=== PATIENT | female | born 1995 | race African-American/Black ===

== ENCOUNTER 2018-12-29 15:10 | Emergency (ER) | payer SELFPAY ==
[2018-12-29] MEDS ORDERED: DEXAMETHASONE SOD PHOS INJ 10 MG/1 ML VIAL IM ONE (16:05)
--- NOTE | 2018-12-29 16:07 | ER Document Report ---
HPI - HPI Time Seen by Provider: 12/29/18 15:53 Pain Level: 3 Notes: Sore throat and dry cough with some body aching that began over the past 1 to 2 days. No known exposure to illness. She is not aware of anything that worsens or improves her symptoms. Patient states that she is still eating and drinking without difficulty. She is urinating normally. Denies drug allergies. No other concerns or complaints. Patient will be needing a work note. Denies any headache, fever, neck pain, hoarseness, drooling, URI, chest pain, palpitations, syncope, shortness of breath, wheeze, dyspnea, abdominal pain, nausea/vomiting/diarrhea, urinary retention, dysuria, hematuria, rash. - ROS Systems Reviewed and Negative: Yes All other systems reviewed and negative - EENT EENT: REPORTS: Sore Throat - RESPIRATORY Respiratory: REPORTS: Coughing - REPRODUCTIVE Reproductive: DENIES: : Past Medical History - Social History Smoking Status: Never Smoker Family History: Reviewed & Not Pertinent Patient has suicidal ideation: No Patient has homicidal ideation: No Renal/ Medical History: Denies: Hx Peritoneal Dialysis Vertical Provider Document - CONSTITUTIONAL Agree With Documented VS: Yes Notes: PHYSICAL EXAMINATION: GENERAL: Well-appearing, well-nourished and in no acute distress. A&Ox4. Answers questions appropriately. Moves comfortably w/o notable distress HEAD: Atraumatic, normocephalic. EYES: Pupils equal round and reactive to light, extraocular movements intact, sclera anicteric, conjunctiva are normal. ENT: EAC clear b/l. TM's intact b/l without erythema, fluid, or perforation. Nares patent and with clear discharge. oropharynx mild erythema without exudates. 2+ tonsilar hypertrophy with mild erythema no exudate. No palatine shift. Uvula midline. No tongue protrusion. No drooling, hoarseness, or airway compromise. Moist mucous membranes. No sinus tenderness. NECK: Normal range of motion, supple without lymphadenopathy. No rigidity/meningismus. LUNGS: Breath sounds clear to auscultation bilaterally and equal. No wheezes rales or rhonchi. No retractions HEART: Regular rate and rhythm without murmurs, rubs, gallops. NEUROLOGICAL: Normal speech, normal gait. PSYCH: Normal mood, normal affect. SKIN: Warm, Dry, normal turgor, no rashes or lesions noted. - INFECTION CONTROL TRAVEL OUTSIDE OF THE [place] IN LAST 30 DAYS: No Course - Re-evaluation Re-evalutation: 12/29/18 Patient is an afebrile, well-hydrated, 23-year-old female who presents with acute pharyngitis/cough, suspect viral. Vitals are acceptable without significant tachycardia, tachypnea, or hypoxia. PE is otherwise unremarkable. Patient is nontoxic-appearing and is tolerating p.o. without difficulty. Rapid strep negative with throat culture pending. No further work-up warranted. Patient was given Decadron IM. Low suspicion for any meningitis, sepsis, peritonsillar/pharyngeal abscess, respiratory compromise, Roderick's, or other emergent systemic condition at this time. Patient is aware this condition can change from initial presentation and she needs to monitor symptoms closely. Conservative measures otherwise for symptoms. Recheck with your PCM in 3-5 days. Return to the ED with any worsening/concerning symptoms otherwise as reviewed in discharge. Patient is in agreement. - Vital Signs Vital signs: Temp Pulse Resp BP Pulse Ox 98.6 F 83 15 130/77 H 99 12/29/18 15:23 12/29/18 15:23 12/29/18 15:23 12/29/18 15:23 12/29/18 15:23 Discharge - Discharge Clinical Impression: Viral syndrome, Sore throat Condition: Stable Disposition: HOME, SELF-CARE Instructions: Sore Throat ([facility]), Viral Syndrome ([facility]) Additional Instructions: Maintain adequate fluid intake Take meds as directed Salt water gargles, throat sprays, mouthwash rinse, peroxide gargles tylenol/ibuprofen as needed over the counter cold medication as needed for symptoms F/u: with your PCM in 2-3 days for a recheck Consider consult with ENT for ongoing/worsening symptoms Return to the ED with any fever, worsening pain, chest pain, neck pain/stiffness, shortness of breath, cough, drooling, trouble swal lowing/breathing, abdominal pain, n/v/d, rash, or worsening/concerning symptoms otherwise. Forms: Elevated Blood Pressure, Return to Work Referrals: LURDES BEASLEY DO [ASSOCIATE] - Follow up as needed
[2018-12-29 16:32] VITALS: BP 112/69
== END 2018-12-29 16:31 | disposition home or self-care (01) ==
LOC: EDBD → ER 15:10
DX: B34.9 Viral infection, unspecified (principal); J02.9 Acute pharyngitis, unspecified; R05 Cough; R52 Pain, unspecified; J35.1 Hypertrophy of tonsils; R09.89 Other specified symptoms and signs involving the circulatory and respiratory systems
CPT/HCPCS: 99283; 96372; 87070; 87880; J1100

== ENCOUNTER 2019-04-04 12:14 | Emergency (ER) | payer SELFPAY ==
[2019-04-04] MEDS ORDERED: ACETAMINOPHEN 325 MG TABLET PO ONE (14:08)
--- NOTE | 2019-04-04 14:10 | ER Document Report ---
ED Medical Screen (RME) - General Chief Complaint: Fall Stated Complaint: FALL/BACK PAIN Time Seen by Provider: 04/04/19 14:04 Mode of Arrival: Ambulatory Information source: Patient Notes: 23-year-old female presented to ED for complaint of chronic back pain that is worse today because she fell out of the shower last night. She she slipped due to her foot being wet when she got in the shower. Patient denies any signs or symptoms of cauda equina. She states she is on her menstrual cycle at this time. TRAVEL OUTSIDE OF THE [place] IN LAST 30 DAYS: No - HPI Onset: Other - chronic Onset/Duration: Better Quality of pain: Achy Severity: Moderate Pain Level: 3 Associated Symptoms: Other - back pian Exacerbated by: Movement, Walking Relieved by: Denies Similar symptoms previously: Yes Recently seen / treated by doctor: No - Related Data Smoking: Cigarettes - ppd Frequency of alcohol use: None Drug Abuse: None Allergies/Adverse Reactions: No Known Allergies Allergy (Verified 04/04/19 12:15) Past Medical History - General Information source: Patient - Social History Cigarette use (# per day): Yes - ppd Frequency of alcohol use: None Drug Abuse: None Lives with: Alone Family history: Reviewed & Not Pertinent - Past Medical History Cardiac Medical History: Reports: None Pulmonary Medical History: Reports: None EENT Medical History: Reports: None Neurological Medical History: Reports: None Endocrine Medical History: Reports: None Renal/ Medical History: Reports: None Malignancy Medical History: Reports: None GI Medical History: Reports: None Musculoskeltal Medical History: Reports Hx Musculoskeletal Deformity, Reports Hx Musculoskeletal Trauma Skin Medical History: Reports None Psychiatric Medical History: Reports: None Traumatic Medical History: Reports: None Infectious Medical History: Reports: None Past Surgical History: Reports: Hx Cholecystectomy - Immunizations Immunizations up to date: No Hx Diphtheria, Pertussis, Tetanus Vaccination: No Review of Systems - Review of Systems Constitutional: No symptoms reported EENT: No symptoms reported Cardiovascular: No symptoms reported Respiratory: No symptoms reported Gastrointestinal: No symptoms reported Genitourinary: No symptoms reported Female Genitourinary: No symptoms reported Musculoskeletal: Back pain, Muscle pain, Muscle stiffness Skin: No symptoms reported Hematologic/Lymphatic: No symptoms reported Neurological/Psychological: No symptoms reported -: Yes All other systems reviewed and negative Physical Exam - Vital signs Vitals: Temp Pulse Resp BP Pulse Ox 97.3 F 79 20 126/67 H 97 04/04/19 12:25 04/04/19 12:25 04/04/19 12:25 04/04/19 12:25 04/04/19 12:25 Interpretation: Normal - General General appearance: Appears well, Alert - HEENT Head: Normocephalic, Atraumatic Eyes: Normal Pupils: PERRL - Respiratory Respiratory status: No respiratory distress Chest status: Nontender Breath sounds: Normal Chest palpation: Normal - Cardiovascular Rhythm: Regular Heart sounds: Normal auscultation Murmur: No - Abdominal Inspection: Normal Distension: No distension Bowel sounds: Normal Tenderness: Nontender Organomegaly: No organomegaly - Back Back: Normal, Tender, Vertebra tenderness - Extremities General upper extremity: Normal inspection, Nontender, Normal color, Normal ROM, Normal temperature General lower extremity: Normal inspection, Nontender, Normal color, Normal ROM, Normal temperature, Normal weight bearing. No: Marc's sign - Neurological Neuro grossly intact: Yes Cognition: Normal Orientation: AAOx4 Nancie Coma Scale Eye Opening: Spontaneous [place] Coma Scale Verbal: Oriented Nancie Coma Scale Motor: Obeys Commands Nancie Coma Scale Total: 15 Speech: Normal Motor strength normal: LUE, RUE, LLE, RLE Sensory: Normal - Psychological Associated symptoms: Normal affect, Normal mood - Skin Skin Temperature: Warm Skin Moisture: Dry Skin Color: Normal Course - Re-evaluation Re-evalutation: 04/04/19 22:11 After performing a Medical Screening Examination, I estimate there is LOW risk for EXPANDING OR RUPTURED ABDOMINAL AORTIC ANEURYSM, CAUDA EQUINA SYNDROME, EPIDURAL MASS LESION, or HERNIATED DISK CAUSING SEVERE SPINAL STENOSIS, thus I consider the discharge disposition reasonable. I have reevaluated this patient multiple times and no significant life threatening changes are noted. The patient and I have discussed the diagnosis and risks, and we agree with discharging home and close follow-up. We also discussed returning to the Emergen cy Department immediately if new or worsening symptoms occur with the understanding that symptoms and presentations can change. We have discussed the symptoms which are most concerning (e.g., saddle anesthesia, urinary or bowel incontinence or retention, changing or worsening pain) that necessitate immediate return. Patient also had a UTI which was treated with antibiotics and patient was discharged home. - Vital Signs Vital signs: Temp Pulse Resp BP Pulse Ox 98.1 F 82 16 115/58 L 98 04/04/19 16:51 04/04/19 16:51 04/04/19 16:51 04/04/19 16:51 04/04/19 16:51 - Laboratory Laboratory results interpreted by me: 04/04/19 14:17 Urine Blood LARGE H Urine Urobilinogen 2.0 H Ur Leukocyte Esterase SMALL H - Diagnostic Test Radiology reviewed: Image reviewed, Reports reviewed Doctor's Discharge - Discharge Clinical Impression: Chronic back pain Qualifiers: Back pain location: low back pain Back pain laterality: unspecified Sciatica presence: without sciatica Qualified Code(s): M54.5 - Low back pain Fall Qualifiers: Encounter type: initial encounter Qualified Code(s): W19.XXXA - Unspecified fall, initial encounter UTI (urinary tract infection) Qualifiers: Urinary tract infection type: acute cystitis Hematuria presence: with hematuria Qualified Code(s): N30.01 - Acute cystitis with hematuria Condition: Stable Disposition: HOME, SELF-CARE Instructions: Family Physicians / Practices Additional Instructions: Chronic Back Pain Chronic back pain (pain persisting longer than three months) is a common problem. A medical evaluation can look for herniated disc, arthritis, osteoporosis, tumors, and infections. But at least half the time, there's no obvious treatable cause. Anxiety and depression tend to worsen back pain. Ibuprofen or other anti-inflammatory medicine can help. A heating pad, used for 15-20 minutes at a time, can ease pain. For this type of back pain, narcotic medicines should be avoided. Muscle relaxers are rarely helpful unless you're having spasms. Activity is important. Find an aerobic exercise program that your back can tolerate. Too much rest makes back pain worse. Specific back exercises are usually prescribed to strengthen the back and abdominal muscles. Often, a physical therapist can help. Avoid heavy lifting, working while bent over, or standing with both knees straight. Most back pain patients do better with a firm mattress. If new symptoms of a "herniated disc" (radiation of pain, numbness, or tingling down the back of the leg or weakness in the leg) occur, you should be re-examined. LOW BACK PAIN: Three out of every four people will have an episode of disabling back pain during their lifetime. Most commonly the pain is due to straining of the muscles and ligaments in the low back. Usual treatment includes: (1) Rest on a firm surface. Avoid lying on your stomach. (2) Ice pack the painful area. After a few days, gentle heat may be used intermittently to relax the area, or ice packs can be continued. (3) Medication may be needed -- muscle relaxers and antiinflammatory medicines are commonly used. (4) As the back improves, exercises are prescribed to strengthen the back and abdominal muscles. Your doctor will advise you on the proper care for your back at each stage in your recovery. You may be better in a few days -- or healing may take several weeks. If new symptoms of a "herniated disc" (radiation of pain, numbness, or tingling down the back of the leg or weakness in the leg) occur, you should be re-examined. Further testing may be necessary. URINARY TRACT INFECTION: Your evaluation indicates that you have a urinary tract infection. This is due to germs growing in the bladder. This is a common problem. This infection usually responds quickly to antibiotics. Your antibiotic should be taken exactly as prescribed. Drink plenty of fluids -- three to four quarts a day. Occasionally, a bladder anesthetic will be prescribed to help stop the feeling of urgency until the antibiotic has a chance to clear the infection. This may cause your urine to be dark orange. Certain urine infections require a culture. If the doctor obtained a culture, the results will be back in two days. You should call to see if a change in treatment is needed. A repeat urinalysis after you finish treatment is often recommended. The physician will let you know if further testing is required. Call the doctor if you develop fever, chills, flank pain, inability to urinate, or blood in the urine. NITROFURANTOIN (MACRODANTIN, MACROBID): You have received a prescription for nitrofurantoin (Macrodantin). This antibiotic is used for urinary tract infections. Women who are or nursing should notify the physician before taking this medicine. If you have ever had a problem caused by this medication in the past, be sure the physician is aware of it. Common side effects of this medicine include nausea, vomiting, or decreased appetite. Notify your physician if these side effects become severe. Immediately stop this medicine and call the physician if you develop cough, shortness of breath, chest pain, weakness, jaundice (yellow color of the skin and whites of the eyes), or a skin rash. ICE PACKS: Apply ice packs frequently against the painful area. Many different schedules are recommended, such as "20 minutes on, 20 minutes off" or "one hour ice, two hours rest." If you need to work, you may need to go longer between ice treatments. You should plan to have the area ice packed AT LEAST one fourth of the time. The ice should be applied over the wrap, tape, or splint, or over a layer of cloth -- not directly against the skin. Some ice bags have a built-in cloth and can be put directly on the skin. WARM PACKS: After approximately two days, apply gentle heat (such as a heating pad or hot water bottle) for about 20 to 30 minutes about every two hours -- at least four times daily. Warmth and elevation will help you make a more rapid recovery, and will ease the pain considerably. Do not use HOT heat, and never apply heat for longer than 30 minutes. The continuous heat can invisibly damage skin and muscles -- even when no burn is seen on the surface. Damaged muscles can make you MORE sore. Stretching Exercises for the Back The physician has recommended that you begin stretching exercises for your back. These are often used even while the back is painful. However, you should notify the physician if the activities seem to increase your pain. PELVIC TILT: Lie flat on your back with knees bent. Tighten your stomach and buttock muscles so it flattens your lower back against the floor. Hold 10 seconds. Repeat 10 times, twice daily. KNEE RAISE: Lying on the back with knees bent, raise one knee to your chest, then the other. Hold both knees against the chest 10 seconds, then lower one knee at a time. Repeat 10 times, twice daily. PARTIAL TRUNK RAISE: Lie face down, arms at your sides. Keeping your waist on the floor, use your arms raise your chest up. Support yourself on your elbows for 30 seconds. Repeat twice daily, increasing the time to two minutes as you recover. Toradol Injection You have been given an injection of ketorolac tromethamine (Toradol). This is an excellent, safe drug for pain control. It also has potent antiinflammatory action. You should have significant pain relief within about one hour. Toradol is not addicting and is non-sedating. It does not interfere with driving or work. Call or return if you develop itching, hives, shortness of breath, or rash. FOLLOW-UP CARE: If you have been referred to a physician for follow-up care, call the physicians office for an appointment as you were instructed or within the next two days. If you experience worsening or a significant change in your symptoms, notify the physician immediately or return to the Emergency Department at any time for re-evaluation. Prescriptions: Nitrofurantoin/Nitrofuran Mac [Macrobid 100 mg Capsule] 1 tab PO BID #14 capsule Forms: Return to Work
[2019-04-04 14:53] LABS: APPEARANCE,URINE CLEAR; BILIRUBIN,URINE NEGATIVE (NEGATIVE); COLOR,URINE YELLOW; GLUCOSE, URINE NEGATIVE (NEGATIVE); KETONES,URINE NEGATIVE (NEGATIVE); LEUKOCYTE ESTERASE,URINE SMALL (NEGATIVE); NITRITE,URINE NEGATIVE (NEGATIVE); PROTEIN,URINE NEGATIVE (NEGATIVE); URINE SPECIFIC GRAVITY 1.015
--- NOTE | 2019-04-04 15:42 | RADIOLOGY REPORT (SQ) ---
EXAM DESCRIPTION: L SPINE WHOLE COMPLETED DATE/TIME: 04/04/2019 3:17 pm REASON FOR STUDY: Increase in chronic low back pain COMPARISON: None. NUMBER OF VIEWS: Five views including obliques. TECHNIQUE: AP, lateral, oblique, and sacral radiographic images acquired of the lumbar spine. LIMITATIONS: None. FINDINGS: MINERALIZATION: Normal. SEGMENTATION: Normal. No transitional anatomy. ALIGNMENT: Normal. VERTEBRAE: Maintained height. No fracture or worrisome bone lesion. DISCS: Preserved height. No significant osteophytes or end plate irregularity. POSTERIOR ELEMENTS: Pedicles and facets are intact. No pars defect or posterior arch defects. HARDWARE: None in the spine. PARASPINAL SOFT TISSUES: Normal. PELVIS: Intact as visualized. No fractures or worrisome bone lesions. SI joints intact. OTHER: No other significant finding. IMPRESSION: NORMAL 5 VIEW LUMBAR SPINE. TECHNICAL DOCUMENTATION: JOB ID: [id number] [employer]- All Rights Reserved Reading location - IP/workstation name: [email or web address]
[2019-04-04 16:53] VITALS: BP 115/58
[2019-04-04] MEDS ORDERED: NITROFURANTOIN MONOHYD/M-CRYST 100 MG CAPSULE PO ONE (16:55)
[2019-04-04] MEDS ORDERED: KETOROLAC TROMETHAMINE 60 MG/2 ML SDV IM ONE (16:55)
== END 2019-04-04 17:07 | disposition home or self-care (01) ==
LOC: ER 12:14
DX: N30.01 Acute cystitis with hematuria (principal); M54.5 Low back pain; W18.2XXA Fall in (into) shower or empty bathtub, initial encounter; Y93.E1 Activity, personal bathing and showering; F17.210 Nicotine dependence, cigarettes, uncomplicated
CPT/HCPCS: 87086; 81025; 81001; 72110; J1885; J8499; 96374; 99283

== ENCOUNTER 2019-06-17 16:08 | Emergency (ER) | payer SELFPAY ==
[2019-06-17 16:12] VITALS: BP 110/59
--- NOTE | 2019-06-17 16:21 | ER Document Report ---
ED Medical Screen (RME) - General Chief Complaint: Abscess Stated Complaint: ABSCESS Time Seen by Provider: 06/17/19 16:15 Mode of Arrival: Ambulatory Information source: POA - [employer] Notes: 23-year-old female presented to ED for 2 abscesses to the right axilla and one abscess to the left axilla. She states they have been present for about 3 weeks. There were 2 on the right side or draining a small amount the abscess I did open with an 18-gauge needle. The one on the left side is not ready for opening at this time. I have started her on Bactrim and Keflex. A wound culture was sent of the abscess on the right. TRAVEL OUTSIDE OF THE [place] IN LAST 30 DAYS: No - HPI Onset: Other - 3 weeks Onset/Duration: Gradual, Better Quality of pain: Achy, Sharp Severity: Moderate Pain Level: 3 Associated Symptoms: Other - Abscesses bilateral axilla Exacerbated by: Movement Relieved by: Denies Similar symptoms previously: Yes Recently seen / treated by doctor: No - Related Data Smoking: Cigar Frequency of alcohol use: Occasional - 1 black in miles a day Drug Abuse: Marijuana Allergies/Adverse Reactions: No Known Allergies Allergy (Verified 04/04/19 12:15) Past Medical History - General Information source: Patient - Social History Cigarette use (# per day): Yes - 1 black and mild Frequency of alcohol use: Occasional Drug Abuse: Marijuana Occupation: Call center Lives with: Family Family history: Reviewed & Not Pertinent - Past Medical History Cardiac Medical History: Reports: None Pulmonary Medical History: Reports: None EENT Medical History: Reports: None Neurological Medical History: Reports: None Endocrine Medical History: Reports: None Renal/ Medical History: Reports: None Malignancy Medical History: Reports: None GI Medical History: Reports: None Musculoskeltal Medical History: Reports Hx Musculoskeletal Deformity, Reports Hx Musculoskeletal Trauma Skin Medical History: Reports Other - Bilateral abscesses Psychiatric Medical History: Reports: None Traumatic Medical History: Reports: None Infectious Medical History: Reports: None Past Surgical History: Reports: Hx Cholecystectomy - Immunizations Immunizations up to date: No Hx Diphtheria, Pertussis, Tetanus Vaccination: No Review of Systems - Review of Systems Constitutional: No symptoms reported EENT: No symptoms reported Cardiovascular: No symptoms reported Respiratory: No symptoms reported Gastrointestinal: No symptoms reported Genitourinary: No symptoms reported Female Genitourinary: No symptoms reported Musculoskeletal: No symptoms reported Skin: Lesions - 2 abscesses to right axilla and 1 to left Hematologic/Lymphatic: No symptoms reported Neurological/Psychological: No symptoms reported -: Yes All other systems reviewed and negative Physical Exam - Vital signs Vitals: Temp Pulse Resp BP Pulse Ox 97.9 F 75 18 110/59 L 100 06/17/19 16:11 06/17/19 16:11 06/17/19 16:11 06/17/19 16:11 06/17/19 16:11 Interpretation: Normal - General General appearance: Appears well, Alert - HEENT Head: Normocephalic, Atraumatic Eyes: Normal Pupils: PERRL - Respiratory Respiratory status: No respiratory distress Chest status: Nontender Breath sounds: Normal Chest palpation: Normal - Cardiovascular Rhythm: Regular Heart sounds: Normal auscultation Murmur: No - Abdominal Inspection: Normal Distension: No distension Bowel sounds: Normal Tenderness: Nontender Organomegaly: No organomegaly - Back Back: Normal, Nontender - Extremities General upper extremity: Normal inspection, Nontender, Normal color, Normal ROM, Normal temperature General lower extremity: Normal inspection, Nontender, Normal color, Normal ROM, Normal temperature, Normal weight bearing. No: Marc's sign - Neurological Neuro grossly intact: Yes Cognition: Normal Orientation: AAOx4 Nancie Coma Scale Eye Opening: Spontaneous [place] Coma Scale Verbal: Oriented Nancie Coma Scale Motor: Obeys Commands Nancie Coma Scale Total: 15 Speech: Normal Motor strength normal: LUE, RUE, LLE, RLE Sensory: Normal - Psychological Associated symptoms: Normal affect, Normal mood - Skin Skin Temperature: Warm Skin Moisture: Dry Skin Color: Normal Skin irregularity: Abscess Location of irregularity: Other - 2 right axilla and 1 left axilla; 2 on right draining one on left not. Character of irregularity: Erythematous Irregularity with: Swelling, Tenderness, Inflammation, Weeping Course - Vital Signs Vital signs: Temp Pulse Resp BP Pulse Ox 97.9 F 75 18 110/59 L 100 06/17/19 16:11 06/17/19 16:11 06/17/19 16:11 06/17/19 16:11 06/17/19 16:11 Procedures - Incision and Drainage Right Axilla Time completed: 16:41 Type: Simple Anesthetic type: Other mL's of anesthetic: 0 Blade size: Other - 18 gauge I&D procedure: Betadine prep applied Incision Method: Incision made with needle Amount/type of drainage: moderateamount purulent drainage Doctor's Discharge - Discharge Clinical Impression: Cutaneous abscess of right axilla, Abscess of left axilla Condition: Stable Disposition: HOME, SELF-CARE Instructions: Family Physicians / Practices Additional Instructions: ABSCESS: You have an abscess (boil). This a pus-forming infection, usually due to staph. Some boils may be left to drain on their own, but most require lancing. From the time the tender lump first appears, it may be three or four days before the abscess is ready to raymond. Local heat and rest help at this stage of treatment. An antibiotic may prevent spread of the infection. Once the abscess is opened, packing may be placed into it. This is done so pus is not sealed inside by premature closure of the cavity. The packing will be removed at your follow-up visit or you may be advised to remove it yourself at home. Sometimes this packing must be replaced a few times during healing. The wound will heal with surprisingly little scar. Depending on the size and location of an abscess, healing can take one to four weeks. You may shower and wash the area around the incision site two or three times a day. Antibiotics may be prescribed, but are usually not necessary after an abscess has been drained. If you develop fever, chills, worsening pain, or increasing swelling in the area, call the doctor or return immediately. POST INCISION AND DRAINAGE: You have had an incision made to allow drainage of an abscess. The incision must remain open so that pus and debris can drain from the wound. If the abscess cavity is large, packing is placed. This keeps the tissues from collapsing and trapping pus inside, while the body shrinks the cavity. The packing may need to be replaced every day or two. The physician will instruct you on the packing. Keep a bulky dressing over the area. Replace it if it becomes saturated with blood or pus. Do not disturb the packing (if present). You may shower and cleanse the area with gentle soap and warm water two or three times a day. Local warmth may be soothing, and may promote faster healing. Return if you develop high fever or chills, or if you note spreading redness, increasing swelling, or increasing tenderness. CEPHALEXIN: The antibiotic you've been prescribed is a member of the cephalosporin class. This type of antibiotic covers a wide variety of infections, including those of the skin, lungs, and urinary tract. It's useful for staph infections. This antibiotic is slightly similar to the penicillin family. In rare cases, a person who is allergic to penicillin will also be allergic to this medication. If you have had a severe allergic reaction to penicillin, and have not taken this antibiotic since that time, notify your doctor. Antibiotics which cover many germs ("broad spectrum" antibiotics) are more likely to cause diarrhea or "yeast" infections. Women prone to vaginal yeast problems may suffer an attack after taking this antibiotic. In infants, oral thrush (white spots "stuck" on the cheek) or yeast diaper rash may result. See your doctor if these problems occur. Call at once if you develop itching, hives, shortness of breath, or lightheadedness. TRIMETHOPRIM-SULFA: You have been given a prescription for trimethoprim-sulfa (TMS, Septra, Bactrim). This is a combination antibiotic of the sulfa class, often used for urinary tract infections, middle ear infections, bronchitis, shigella intestinal infection, and Pneumocystis pneumonia. TMS is usually well-tolerated. Occasional side effects include nausea and decreased appetite. Septra is not recommended for infants less than two months of age. Do not take this medication if you have experienced severe side effects or allergy to sulfa medicine. You should stop this medicine at once and contact your physician if you develop any rash, joint pain, shortness of breath, bruising, or jaundice (yellow color in the skin), or if you develop any other new or unusual symptoms. FOLLOW-UP CARE: Most simple abscesses will not require a follow up visit. If you had packing placed in the abscess, remove it as instructed by the physician. If you have been referred to a physician for follow-up care, call the physicians office for an appointment as you were instructed or within the next two days. If you experience worsening or a significant change in your symptoms, return to the Emergency Department at any time for re-evaluation. Prescriptions: Sulfamethoxazole/Trimethoprim [Bactrim Ds Tablet] 1 each PO BID #20 tablet Cephalexin Monohydrate [Keflex 500 mg Capsule] 500 mg PO Q6H 5 Days capsule Forms: Smoking Cessation Education, Return to Work
[2019-06-17] MEDS ORDERED: SULFAMETHOXAZOLE/TRIMETHOPRIM 800-160 MG TABLET PO ONE (16:24)
[2019-06-17] MEDS ORDERED: CEPHALEXIN 500 MG CAPSULE PO ONE (16:24)
== END 2019-06-17 16:32 | disposition home or self-care (01) ==
LOC: ER 16:08
DX: L02.411 Cutaneous abscess of right axilla (principal); L02.412 Cutaneous abscess of left axilla; F17.290 Nicotine dependence, other tobacco product, uncomplicated; F17.210 Nicotine dependence, cigarettes, uncomplicated
CPT/HCPCS: 87070; 87075; 87077; 87205; 99283

== ENCOUNTER 2020-01-27 08:01 | Emergency (ER) | payer SELFPAY ==
[2020-01-27] MEDS ORDERED: LIDOCAINE 1%/EPINEPHRINE INJ 20 ML VIAL INJ ONE (09:23)
[2020-01-27] MEDS ORDERED: HYDROCODONE/ACETAMINOPHEN 5-325 MG TABLET PO ONE (09:23)
--- NOTE | 2020-01-27 09:33 | ER Document Report ---
ED General - General Chief Complaint: Abscess Stated Complaint: ABSCESS Time Seen by Provider: 01/27/20 09:14 Notes: 24-year-old female with no pertinent past medical history reported states that she has had a pain along her buttocks for approximately 3 weeks that is increased in the last 2 to 3 days states it is painful to sit down, painful to walk. She has not noticed any drainage. States she has never had any abscesses in this location before. Last menstrual period was 10 days ago. No numbness or tingling. Denies any fever, chills, shortness of breath or additional symptoms. She drinks occasional alcohol, current smoker and denies any IV drug use. States she smokes marijuana occasionally, last use was yesterday. TRAVEL OUTSIDE OF THE [place] IN LAST 30 DAYS: No - Related Data Allergies/Adverse Reactions: No Known Allergies Allergy (Verified 01/28/20 10:47) Past Medical History - Social History Smoking Status: Current Every Day Smoker Chew tobacco use (# tins/day): No Frequency of alcohol use: Social Drug Abuse: Marijuana Family History: Reviewed & Not Pertinent Patient has homicidal ideation: No - Past Medical History Cardiac Medical History: Reports: None Pulmonary Medical History: Reports: None EENT Medical History: Reports: None Neurological Medical History: Reports: None Endocrine Medical History: Reports: None Renal/ Medical History: Reports: None. Denies: Hx Peritoneal Dialysis Musculoskeletal Medical History: Reports Hx Musculoskeletal Deformity, Reports Hx Musculoskeletal Trauma Past Surgical History: Reports: Hx Abdominal Surgery, Hx Cholecystectomy - Immunizations Immunizations up to date: No Hx Diphtheria, Pertussis, Tetanus Vaccination: No Review of Systems - Review of Systems Constitutional: No symptoms reported EENT: No symptoms reported Cardiovascular: No symptoms reported Respiratory: No symptoms reported Gastrointestinal: No symptoms reported Genitourinary: No symptoms reported Female Genitourinary: No symptoms reported Skin: See HPI Physical Exam - Vital signs Vitals: Temp Pulse Resp BP Pulse Ox 99.7 F 104 H 20 129/70 H 99 01/27/20 08:04 01/27/20 08:04 01/27/20 08:04 01/27/20 08:04 01/27/20 08:04 Course - Re-evaluation Re-evalutation: 01/27/20 23:12 Abscess was drained. Patient reports relief in her symptoms. Patient is eager to leave. I am pending results of the CBC. I revaluated patient. Patient continues to be nontoxic, non ill appearing. She continues to be eager to leave. I discussed with her that I am still pending the results of her CBC but I will call her if the results are abnormal and if she needs additional treatment. I will prescribe her antibiotics. She will also need to follow up with her primary care provider for a wound check tomorrow. I also recommend she follow up with a general surgeon for additional management of her pilodinal cyst. Return precautions discussed to include worsening symptoms or the development of new symptoms. She may take tylenol and ibuprofen for pain. Patient acknowledges and verbalizes understanding of instructions and plan. All questions answered. - Vital Signs Vital signs: Temp Pulse Resp BP Pulse Ox 98.4 F 90 15 113/67 97 01/27/20 12:27 01/27/20 12:27 01/27/20 12:27 01/27/20 12:27 01/27/20 12:27 - Laboratory Result Diagrams: 01/27/20 12:00 Laboratory results interpreted by me: 01/27/20 12:00 WBC 15.7 H Hgb 11.9 L RDW 14.3 H Lymph % (Auto) 12.1 L Absolute Neuts (auto) 12.4 H Seg Neutrophils % 79.3 H Discharge - Discharge Clinical Impression: Pilonidal cyst with abscess Condition: Stable Disposition: HOME, SELF-CARE Instructions: Abscess ([facility]), Oral Narcotic Medication ([facility]) Additional Instructions: You have been treated for an infected pilonidal cyst. I recommend that you follow-up with your primary care tomorrow for wound check and dressing change. Also recommend you follow-up with a general surgeon for further evaluation and treatment. Please take medication as prescribed. You have been prescribed antibiotic and pain med. Still pending the results of your CBC. You will be notified if there is any concerning findings on this. Please do not drive while taking this pain medication. Please return to the emergency department if you have worsening symptoms or the development of new symptoms. Prescriptions: Clindamycin HCl 150 mg PO TID #21 capsule Clindamycin HCl 450 mg PO TID #21 capsule Hydrocodone/Acetaminophen [Comfort 5-325 mg Tabs (6 Tab/ER Disp)] 1 tab PO Q6H 2 Days #6 dspk
[2020-01-27 12:29] LABS: ABSOLUTE EOSINOPHILS # (AUTO) 0.1 10^3/uL (0.0-0.6); ABSOLUTE LYMPHOCYTES (AUTO) 1.9 10^3/uL (0.5-4.7); ABSOLUTE MONOCYTES (AUTO) 1.2 10^3/uL (0.1-1.4); ABSOLUTE NEUT (AUTO) 12.4 10^3/uL (1.7-8.2); BASOPHILS % (AUTO) 0.3 % (0-2); EOSINOPHILS % (AUTO) 0.7 % (0-6); HEMATOCRIT 36.8 % (36.0-47.0); HEMOGLOBIN 11.9 g/dL (12.0-15.5); LYMPHOCYTES % (AUTO) 12.1 % (13-45); MEAN CORPUSCULAR HEMOGLOBIN 27.4 pg (27.0-33.4); MEAN CORPUSCULAR HGB CONC 32.3 g/dL (32.0-36.0); MEAN CORPUSCULAR VOLUME 85 fl (80-97); MONOCYTES % (AUTO) 7.6 % (3-13); PLATELET COUNT 362 10^3/uL (150-450); RED BLOOD COUNT 4.35 10^6/uL (3.72-5.28); RED CELL DISTRIBUTION WIDTH 14.3 % (11.5-14.0); SEGMENTED NEUTROPHILS % (AUTO) 79.3 % (42-78); TOTAL CELLS COUNTED % (AUTO) 100 %; WHITE BLOOD COUNT 15.7 10^3/uL (4.0-10.5)
[2020-01-27 12:33] VITALS: BP 113/67
== END 2020-01-27 12:35 | disposition home or self-care (01) ==
LOC: ER 08:01
DX: L05.01 Pilonidal cyst with abscess (principal); F17.200 Nicotine dependence, unspecified, uncomplicated
CPT/HCPCS: 99283; 36415; 87070; 87205; 85025; J3490; 87075; 87077

== ENCOUNTER 2020-01-27 14:47 | Emergency (ER) | payer SELFPAY ==
[2020-01-27] MEDS ORDERED: VANCOMYCIN HCL INJ 1000 MG VIAL IV ONE (15:56)
[2020-01-27] MEDS ORDERED: CEFTRIAXONE INJ 1000 MG VIAL IV ONE (15:56)
[2020-01-27] MEDS ORDERED: CEFTRIAXONE 1 GM/D5W RTU 1 GM/50 ML RTUPB IV ONE (16:09)
[2020-01-27 16:35] LABS: ALBUMIN 3.7 g/dL (3.5-5.0); ALKALINE PHOSPHATASE 81 U/L (38-126); ANION GAP 5 (5-19); ASPARTATE AMINO TRANSFERASE 15 U/L (14-36); BILIRUBIN,TOTAL 0.3 mg/dL (0.2-1.3); BLOOD UREA NITROGEN 4 mg/dL (7-20); CALCIUM 9.2 mg/dL (8.4-10.2); CARBON DIOXIDE 29 mmol/L (22-30); CHLORIDE 105 mmol/L (98-107); GLUCOSE 106 mg/dL (75-110); POTASSIUM 3.5 mmol/L (3.6-5.0); TOTAL PROTEIN 6.9 g/dL (6.3-8.2)
[2020-01-27] MEDS ORDERED: HYDROCODONE/ACETAMINOPHEN 5-325 MG TABLET PO ONE (18:04)
--- NOTE | 2020-01-27 18:44 | ER Document Report ---
ED General - General Chief Complaint: Abnormal Lab Results Stated Complaint: ABNORMAL LAB Notes: 24 y.o female undergoing pilodinal cyst drainage this morning and was discharged prior to results of her CBC. Her CBC resulted and showed an elevated WBC at 15.7 and slight left shift. She was called to return to the ER for further evaluation and treatment. Continues to report improvement in her pain at this time. I discussed I have concerns of sepsis as she was tachycardic at 104, with an elevated white count and a source of infection. She remains mildly tachycardic at 93. Temp of 99.3. She is nontoxic in appearance. Antibitoics and additional testing was ordered. TRAVEL OUTSIDE OF THE [place] IN LAST 30 DAYS: No - Related Data Allergies/Adverse Reactions: No Known Allergies Allergy (Verified 01/28/20 10:47) Past Medical History - Social History Smoking Status: Never Smoker Family History: Reviewed & Not Pertinent Renal/ Medical History: Denies: Hx Peritoneal Dialysis Musculoskeletal Medical History: Reports Hx Musculoskeletal Deformity, Reports Hx Musculoskeletal Trauma Past Surgical History: Reports: Hx Abdominal Surgery, Hx Cholecystectomy - Immunizations Immunizations up to date: No Hx Diphtheria, Pertussis, Tetanus Vaccination: No Review of Systems - Review of Systems Constitutional: No symptoms reported EENT: No symptoms reported Cardiovascular: No symptoms reported Respiratory: No symptoms reported Gastrointestinal: No symptoms reported Genitourinary: No symptoms reported Female Genitourinary: No symptoms reported Musculoskeletal: See HPI Skin: See HPI Physical Exam - Vital signs Vitals: Temp 99.3 F 01/27/20 14:49 Interpretation: No: Hypotensive, Hypertensive, Tachycardic, Febrile - Notes Notes: Adult General: GENERAL: Alert, interacts well. No acute distress HEAD: Normocephalic, atraumatic EYES: Extraocular movements intact. ENT: Airway patent. Nares patent. NECK: Full range of motion. Supple. Trachea midline. GENITOURINARY: Deferred EXTREMITIES: Moves all 4 extremities spontaneously. BACK: Moves all extremities with full range of motion. NEUROLOGICAL: Alert and oriented x3. Normal speech. Strength 5/ 5 in all extremities. PSYCH: Normal affect, normal mood. SKIN: Warm, dry, normal turgor. Incision and packing from i & D this am. Course - Re-evaluation Re-evalutation: 01/27/20 19:57 Was reevaluated. Patient reports that she is in no acute pain or distress. She is currently afebrile, not tachycardic and receiving antibiotics. Her blood pressure is 91/52. I will have the nurses recheck this. I discussed with patient that I do not feel that she is septic at this time. I do recommend that she follows up with emergency department tomorrow for a wound check. Her CT scan shows no concerning findings and no extension of the abscess. Discussed with patient that based on the fact that her vitals have improved that I do not suspect she is not septic at this time and she can be discharged after the IV antibiotics are complete. After she is completed with her dose of antibiotics I am comfortable discharging her with close follow-up. Patient is agreeable to the plan. I prescribed her antibitoics. She acknowledges and verbalizes understanding of instructions and plan. All questions answered. 01/27/20 20:33 Patient was turned over to Olivia Merida, she is ready for discharge as long as her repeat blood pressure is good. I have discussed return precautions with her and appropriate follow up. - Vital Signs Vital signs: Temp Pulse Resp BP Pulse Ox 98.7 F 78 14 103/52 L 100 01/27/20 21:14 01/27/20 21:14 01/27/20 21:14 01/27/20 21:14 01/27/20 21:14 - Laboratory Result Diagrams: 01/27/20 15:54 Laboratory results interpreted by me: 01/27/20 15:54 Potassium 3.5 L BUN 4 L Discharge - Discharge Clinical Impression: Pilonidal cyst with abscess Condition: Stable Disposition: HOME, SELF-CARE Instructions: Abscess ([facility]), Post Incision and Drainage Additional Instructions: You have been treated for an infection. Please follow up with your primary care provider tomorrow or the emergency department for dressing change. You have been prescribed antibiotics, please take them as prescribed. Please return to the emergency department for worsening symptoms or development of new symptoms. Forms: Elevated Blood Pressure
--- NOTE | 2020-01-27 19:43 | RADIOLOGY REPORT (SQ) ---
EXAM DESCRIPTION: CT ABD/PELVIS WITH IV ONLY IMAGES COMPLETED DATE/TIME: 01/27/2020 7:21 pm REASON FOR STUDY: pilodinal evaluation COMPARISON: None. TECHNIQUE: CT scan of the abdomen and pelvis performed using helical scanning technique with dynamic intravenous contrast injection. No oral contrast. Images reviewed with lung, soft tissue, and bone windows. Reconstructed coronal and sagittal MPR images reviewed. Delayed images for evaluation of the urinary system also acquired. All images stored on PACS. All CT scanners at this facility use dose modulation, iterative reconstruction, and/or weight based d osing when appropriate to reduce radiation dose to as low as reasonably achievable (ALARA). [facility]: Dose Right [facility]: CareDose [facility]: Dose Right [facility]: Teradose 4D [facility]: [employer] CONTRAST TYPE AND DOSE: contrast/concentration: Isovue 350.00 mmol/ml; Total Contrast Delivered: 100 .0 ml; Total Saline Delivered: 30.0 ml RENAL FUNCTION: BUN 4 creatinine 0.67there'll bed RADIATION DOSE: CT Rad equipment meets quality standard of care and radiation dose reduction techniq ues were employed. CTDIvol: 15.7 - 19.0 mGy. DLP: 1796 mGy-cm.. LIMITATIONS: None. FINDINGS: LOWER CHEST: No significant findings. No nodules or infiltrates. LIVER: Normal size. No masses. No dilated ducts. SPLEEN: Normal size. No focal lesions. PANCREAS: No masses. No significant calcifications. No adjacent inflammation or peripancreatic fluid collections. Pancreatic duct not dilated. GALLBLADDER: Surgically absent. ADRENAL GLANDS: No significant masses or asymmetry. RIGHT KIDNEY AND URETER: No solid masses. No significant calcifications. No hydronephrosis or hyd roureter. LEFT KIDNEY AND URETER: No solid masses. No significant calcifications. No hydronephrosis or hydr oureter. AORTA AND VESSELS: No aneurysm. No dissection. Renal arteries, SMA, celiac without stenosis. RETROPERITONEUM: No retroperitoneal adenopathy, hemorrhage or masses. BOWEL AND PERITONEAL CAVITY: No masses or inflammatory changes. No free fluid or peritoneal masses. APPENDIX: Not identified. PELVIS: No mass. No free fluid. Normal bladder. ABDOMINAL WALL: No masses. No hernias. BONES: No significant or acute findings. OTHER: Surgical changes seen posteriorly IMPRESSION: Pilonidal cyst surgery. No acute findings. TECHNICAL DOCUMENTATION: JOB ID: [id number] Quality ID # [id number]: Final reports with documentation of one or more dose reduction techniques (e.g., Au tomated exposure control, adjustment of the mA and/or kV according to patient size, use of iterative reconstruction technique) 2010 [employer]- All Rights Reserved Reading location - IP/workstation name: [email or web address]
[2020-01-27 21:14] VITALS: BP 103/52
== END 2020-01-27 21:17 | disposition home or self-care (01) ==
LOC: ER 14:47
DX: L05.01 Pilonidal cyst with abscess (principal); Z90.49 Acquired absence of other specified parts of digestive tract
CPT/HCPCS: 99284; 96365; 96366; 96368; 36415; 87040; 83605; 81025; 80053; 74177; J0696; J3370

== ENCOUNTER 2020-01-28 10:19 | Emergency (ER) | payer SELFPAY ==
[2020-01-28 10:23] VITALS: BP 109/62
--- NOTE | 2020-01-28 11:04 | ER Document Report ---
ED Suture/Wound Recheck - General Chief Complaint: Wound Recheck Stated Complaint: WOUND CHECK Time Seen by Provider: 01/28/20 10:59 Primary Care Provider: [facility] [Provider Group] - Follow up as needed [facility] [Provider Group] - Follow up as needed Mode of Arrival: Ambulatory Information source: Patient Notes: 24-year-old female presented to ED for complaint of need for wound dressing to her pilonidal cyst that was I&D done several days ago. She is alert oriented respirations regular nonlabored speaking in full sentences walks with a even steady gait. TRAVEL OUTSIDE OF THE [place] IN LAST 30 DAYS: No - HPI Previous ED treatment: I&D of abscess Antibiotics given previously: Prescription Quality of pain: No pain Severity: None Pain Level: Denies Symptoms since procedure: No complaints Exacerbated by: Sitting Relieved by: Denies - Related Data Allergies/Adverse Reactions: No Known Allergies Allergy (Verified 01/28/20 10:47) Past Medical History - General Information source: Patient - Social History Smoking Status: Current Every Day Smoker Cigarette use (# per day): Yes - Pack per day Smoking Education Provided: Yes - Minutes Frequency of alcohol use: Occasional Drug Abuse: Marijuana Lives with: Family Family History: Reviewed & Not Pertinent Patient has homicidal ideation: No - Past Medical History Cardiac Medical History: Reports: None Pulmonary Medical History: Reports: None EENT Medical History: Reports: None Neurological Medical History: Reports: None Endocrine Medical History: Reports: None Renal/ Medical History: Reports: None Malignancy Medical History: Reports: None GI Medical History: Reports: None Musculoskeletal Medical History: Reports Hx Musculoskeletal Deformity, Reports Hx Musculoskeletal Trauma Skin Medical History: Reports Hx Cellulitis Psychiatric Medical History: Reports: None Traumatic Medical History: Reports: None Infectious Medical History: Reports: None Past Surgical History: Reports: Hx Abdominal Surgery, Hx Cholecystectomy - Immunizations Immunizations up to date: No Hx Diphtheria, Pertussis, Tetanus Vaccination: No Review of Systems - Review of Systems Constitutional: No symptoms reported EENT: No symptoms reported Cardiovascular: No symptoms reported Respiratory: No symptoms reported Gastrointestinal: No symptoms reported Genitourinary: No symptoms reported Female Genitourinary: No symptoms reported Musculoskeletal: No symptoms reported Skin: Other - Check abscess pilonidal cyst Hematologic/Lymphatic: No symptoms reported Neurological/Psychological: No symptoms reported -: Yes All other systems reviewed and negative Physical Exam - Vital signs Vitals: Temp Pulse Resp BP Pulse Ox 98.4 F 76 16 109/62 99 01/28/20 10:01/28/20 10:01/28/20 10:01/28/20 10:01/28/20 10:22 Interpretation: Normal - General General appearance: Appears well, Alert - HEENT Head: Normocephalic, Atraumatic Eyes: Normal Pupils: PERRL - Respiratory Respiratory status: No respiratory distress Chest status: Nontender Breath sounds: Normal Chest palpation: Normal - Cardiovascular Rhythm: Regular Heart sounds: Normal auscultation Murmur: No - Abdominal Inspection: Normal Distension: No distension Bowel sounds: Normal Tenderness: Nontender Organomegaly: No organomegaly - Back Back: Normal, Nontender - Extremities General upper extremity: Normal inspection, Nontender, Normal color, Normal ROM, Normal temperature General lower extremity: Normal inspection, Nontender, Normal color, Normal ROM, Normal temperature, Normal weight bearing. No: Marc's sign - Neurological Neuro grossly intact: Yes Cognition: Normal Orientation: AAOx4 [place] Coma Scale Eye Opening: Spontaneous [place] Coma Scale Verbal: Oriented [place] Coma Scale Motor: Obeys Commands [place] Coma Scale Total: 15 Speech: Normal Motor strength normal: LUE, RUE, LLE, RLE Sensory: Normal - Psychological Associated symptoms: Normal affect, Normal mood - Skin Skin Temperature: Warm Skin Moisture: Dry Skin Color: Normal Location of irregularity: Other - Wound from pilonidal cyst/abscess examined Character of irregularity: negative: Erythematous Irregularity with: Tenderness. negative: Inflammation Course - Re-evaluation Re-evalutation: 01/28/20 23:38 Packing was removed from pilonidal cyst/abscess. Wound was irrigated with 50 cc of normal saline and redressed. Patient was instructed to irrigate wound with use of a hand-held shower and take medications as prescribed. Patient was included instructed to change the dressing on this wound at least 2-3 times a day and whenever dirty. Patient verbalized understanding and agreement with treatment plan and patient was discharged home. - Vital Signs Vital signs: Temp Pulse Resp BP Pulse Ox 98.4 F 76 16 109/62 99 01/28/20 10:01/28/20 10:01/28/20 10:01/28/20 10:22 01/28/20 10:22 Discharge - Discharge Clinical Impression: Pilonidal cyst with abscess, Wound check, abscess Condition: Stable Disposition: HOME, SELF-CARE Additional Instructions: ABSCESS: You have an abscess (boil). This a pus-forming infection, usually due to staph. Some boils may be left to drain on their own, but most require lancing. From the time the tender lump first appears, it may be three or four days before the abscess is ready to raymond. Local heat and rest help at this stage of treatment. An antibiotic may prevent spread of the infection. Once the abscess is opened, packing may be placed into it. This is done so pus is not sealed inside by premature closure of the cavity. The packing will be removed at your follow-up visit or you may be advised to remove it yourself at home. Sometimes this packing must be replaced a few times during healing. The wound will heal with surprisingly little scar. Depending on the size and location of an abscess, healing can take one to four weeks. You may shower and wash the area around the incision site two or three times a day. Antibiotics may be prescribed, but are usually not necessary after an abscess has been drained. If you develop fever, chills, worsening pain, or increasing swelling in the area, call the doctor or return immediately. Please continue antibiotics as instructed. Please irrigate wound with hand-held shower at least once a day preferably 2-3 times a day. FOLLOW-UP CARE: Most simple abscesses will not require a follow up visit. If you had packing placed in the abscess, remove it as instructed by the physician. If you have been referred to a physician for follow-up care, call the physicians office for an appointment as you were instructed or within the next two days. If you experience worsening or a significant change in your symptoms, return to the Emergency Department at any time for re-evaluation. Forms: Smoking Cessation Education Referrals: [facility] [Provider Group] - Follow up as needed [facility] [Provider Group] - Follow up as needed
== END 2020-01-28 10:59 | disposition home or self-care (01) ==
LOC: ER 10:19
DX: L05.01 Pilonidal cyst with abscess (principal); F17.210 Nicotine dependence, cigarettes, uncomplicated; Z90.49 Acquired absence of other specified parts of digestive tract
CPT/HCPCS: 99282

== ENCOUNTER 2020-08-07 17:26 | Emergency (ER) | payer SELFPAY ==
--- NOTE | 2020-08-07 18:33 | ER Document Report ---
ED Medical Screen (RME) - General Chief Complaint: Abscess Stated Complaint: ABSCESS/BUTTOCKS TRAVEL OUTSIDE OF THE [place] IN LAST 30 DAYS: No - HPI Notes: 08/07/20 18:30 Rapid Medical Exam HPI: This is a 24-year-old female complaining of a recurrent abscess to the superior buttocks area. Patient says she had a incision and drainage about 6 months ago. She noticed similar symptoms about 1 week ago that have progressively worsened. no fever/chills or n/v Physical Exam: GENERAL: Well-appearing, well-nourished and in no acute distress. HEAD: Atraumatic, normocephalic. ENT: Moist mucous membranes. RESP: Respirations even and unlabored CV- Regular rate. NEURO: No focal neurological deficits. Moves all extremities spontaneously and on command. My involvement in this patients care was limited to a rapid initial assessment. A comprehensive ED assessment and evaluation of the patient, analysis of test results, treatment, and completion of the medical decision making process will be performed by other ER providers. - Related Data Allergies/Adverse Reactions: No Known Allergies Allergy (Verified 01/28/20 10:47) Past Medical History - Social History Family history: Reviewed & Not Pertinent Renal/ Medical History: Denies: Hx Peritoneal Dialysis Musculoskeltal Medical History: Reports Hx Musculoskeletal Deformity, Reports Hx Musculoskeletal Trauma Skin Medical History: Reports Hx Cellulitis Past Surgical History: Reports: Hx Abdominal Surgery, Hx Cholecystectomy - Immunizations Immunizations up to date: No Hx Diphtheria, Pertussis, Tetanus Vaccination: No Physical Exam - Vital signs Vitals: Temp Pulse Resp BP Pulse Ox 98.4 F 86 16 123/77 100 08/07/20 17:36 08/07/20 17:36 08/07/20 17:36 08/07/20 17:36 08/07/20 17:36 Course - Vital Signs Vital signs: Temp Pulse Resp BP Pulse Ox 98.4 F 86 16 123/77 100 08/07/20 17:36 08/07/20 17:36 08/07/20 17:36 08/07/20 17:36 08/07/20 17:36
[2020-08-07] MEDS ORDERED: LIDOCAINE 1%/EPINEPHRINE INJ 20 ML VIAL INJ ONE (18:37)
[2020-08-07 19:50] VITALS: BP 117/62
--- NOTE | 2020-08-07 19:58 | ER Document Report ---
ED General - General Chief Complaint: Boil Stated Complaint: ABSCESS/BUTTOCKS TRAVEL OUTSIDE OF THE [place] IN LAST 30 DAYS: No - HPI Notes: Chief Complaint: Historian: History obtained from patient HPI: This is a This is a 24-year-old female complaining of a recurrent abscess to the superior gluteal cleft. Patient says she had a incision and drainage about 6 months ago. She noticed similar symptoms about 1 week ago that have progressively worsened. no fever/chills or n/v. no active drainage from site. ROS: Constitutional: no fevers. HEENT: no NOBLES, sore throat, or vision changes. CV: no chest pain or palpitations. Resp: no cough or SOB. GI: no abdominal pain, or n/v/d. : no dysuria, hematuria, or incont. MSK: no back pain, no joint swelling/redness. Skin: abscess superior gluteal cleft Neuro: no seizures, weakness, numbness, or confusion. Hematological: no ecchymosis or easy bleeding. Endocrine: no polyuria/polydipsia, no heat/cold intolerance. Psych: no SI/HI, AH/VH or memory loss. PMHx: Reviewed and agree as charted by RN. PSHx: Reviewed and agree as charted by RN. SOCHx: Reviewed and agree as charted by RN. FHX: No significant familial comorbid conditions directly related to patient complaint Current Medications: Reviewed and agree with the patient medications as charted by the RN. Allergies: Reviewed and agree with the listed allergies as charted by the RN Physical Exam: Vitals: Reviewed in chart as documented by RN. General: Alert and in NAD. Head: Normocephalic; atraumatic Eyes: PERRLA, Conjunctivae clear sclerae non-icteric bilat ENT: no soft palate swelling or uvular deviation Neck: trachea midline, no unilateral swelling/tenderness/lymphadenopathy CV: RRR, no M/R/G; symmetric distal pulses Resp: respirations even and unlabored, CTA bilat. GI: abd soft and nondistended. NTTP. normal BS. no masses/HSM. no CVAT bilat MSK: FROM of all extremities. No midline CTL spine tenderness/deformity Skin: superior gluteal cleft- 4cm area of erythema and mild swelling, indurated. no fluctuance. no open wounds or drainage. TTP. does not extend to perianal area. Neuro: Alert and oriented X 4. following CN 2-12 intact. no unilateral weakness/numbness Psych: No SI/HI or AH/VH. Medical Decision-making/Differential Diagnosis: Consider various etiologies including but not limited to skin/soft tissue structure infection, cellulitis, erysipelas, sepsis syndromes, focal abscess, infected pilonidal abscess, ect plan- incision and drainage, script for po abx. minimal drainage from I&D, likely too early but pt wanted to proceed due to hx of complication from waiting too long. pt will f/u w/ pcp in 2-3 days for recheck and for derm referral for excision of pilonidal cyst for definitive treatment. return factors discussed. bactrim sent to her pharmacy. pt agrees w/ the plan of care. - Related Data Allergies/Adverse Reactions: No Known Allergies Allergy (Verified 08/07/20 19:42) Past Medical History - Social History Smoking Status: Former Smoker Chew tobacco use (# tins/day): No Frequency of alcohol use: Rare Drug Abuse: Marijuana Family History: Reviewed & Not Pertinent Renal/ Medical History: Denies: Hx Peritoneal Dialysis Musculoskeletal Medical History: Reports Hx Musculoskeletal Deformity, Reports Hx Musculoskeletal Trauma Skin Medical History: Reports Hx Cellulitis Past Surgical History: Reports: Hx Abdominal Surgery, Hx Cholecystectomy - Immunizations Immunizations up to date: No Hx Diphtheria, Pertussis, Tetanus Vaccination: No Physical Exam - Vital signs Vitals: Temp Pulse Resp BP Pulse Ox 98.4 F 86 16 123/77 100 08/07/20 17:36 08/07/20 17:36 08/07/20 17:36 08/07/20 17:36 08/07/20 17:36 Course - Vital Signs Vital signs: Temp Pulse Resp BP Pulse Ox 98.4 F 86 16 123/77 100 08/07/20 17:36 08/07/20 17:36 08/07/20 17:36 08/07/20 17:36 08/07/20 17:36 - Laboratory Results Critical Laboratory Results Reviewed: No Critical Results - Radiology Results Critical Radiology Results Reviewed: No Critical Results Procedures - Incision and Drainage Upper Buttock Type: Simple Anesthetic type: 1% Lidocaine w/epi mL's of anesthetic: 5 Blade size: 11 I&D procedure: Betadine prep applied, Other - plain packing placed Incision Method: Incision made by scalpel Amount/type of drainage: 1ml purulent drainage Discharge - Discharge Clinical Impression: Abscess Condition: Stable Disposition: HOME, SELF-CARE Instructions: Abscess ([facility]), Post Incision and Drainage Additional Instructions: follow printed instructions. take medications as prescribed. remove packing in 2-3 days. follow up with your doctor in 2-3 days. return to the ER if your condition worsens. Prescriptions: Sulfamethoxazole/Trimethoprim [Bactrim Ds Tablet] 1 tab PO BID #10 tablet
== END 2020-08-07 20:13 | disposition home or self-care (01) ==
LOC: ER 17:26
DX: L02.31 Cutaneous abscess of buttock (principal); Z87.891 Personal history of nicotine dependence
CPT/HCPCS: 99282; 10060; J3490